=== PATIENT | female | born 1960 | race African-American/Black ===

== ENCOUNTER 2025-01-16 22:17 | Inpatient (IN) | payer OTHER ==
[2025-01-16 22:25] VITALS: BMI 30.7
[2025-01-16] MEDS: SODIUM CHLORIDE 0.9% 500 ML INFUS.BAG IV ONE (23:31)
[2025-01-16] MEDS: ACETAMINOPHEN 1000 MG/100 ML BAG IVPB ONE (23:32)
[2025-01-16 23:48] LABS: BASO % 0.7 % (0-2.0); EOS % 0.9 % (0-4.5); HEMATOCRIT 37.6 % (32.4-45.2); HEMOGLOBIN 12.8 GM/dL (10.7-15.3); LYMPH % 38.5 % (8-40); MCH 32.6 pg (25.7-33.7); MCHC 33.9 g/dl (32.0-36.0); MEAN PLT VOLUME 8.8 fl (7.5-11.1); MONO % 8.3 % (3.8-10.2); NEUT % 51.6 % (42.8-82.8); PLATELET COUNT 168 10^3/uL (134-434); RBC 3.92 M/mm3 (3.60-5.2); RDW 14.2 % (11.6-15.6); WHITE BLOOD COUNT 6.4 K/mm3 (4.0-10.0)
[2025-01-16 23:56] LABS: INR 0.94 (0.83-1.09); PROTHROMBIN TIME (PATIENT) 10.3 SEC (9.7-13.0)
[2025-01-16 23:58] LABS: ACTIVATED PTT 31.3 SECONDS (25.2-36.5)
[2025-01-17] MEDS ORDERED: PANTOPRAZOLE 20 MG TABLET PO ONE (00:04)
[2025-01-17] MEDS ORDERED: LIDOCAINE 4% PATCH TP ONE (00:04)
[2025-01-17] MEDS: LIDOCAINE 4% PATCH TP ONE (00:12)
[2025-01-17] MEDS: PANTOPRAZOLE 20 MG TABLET PO ONE (00:12)
[2025-01-17 00:25] LABS: POTASSIUM 3.7 mmol/L (3.5-5.1)
[2025-01-17 00:27] LABS: CALCIUM 13.1 mg/dL (8.5-10.1)
[2025-01-17 00:28] LABS: ALBUMIN 3.7 g/dl (3.4-5.0); MAGNESIUM 1.9 mg/dL (1.8-2.4)
[2025-01-17 00:30] LABS: CREATININE 1.2 mg/dL (0.55-1.3)
[2025-01-17 00:31] LABS: PHOSPHOROUS 2.7 mg/dL (2.5-4.9)
[2025-01-17 00:32] LABS: BILIRUBIN,TOTAL 0.3 mg/dL (0.2-1); TOT PROT 7.3 g/dl (6.4-8.2)
[2025-01-17 02:31] LABS: EPI CELLS 29 /uL (0-25.1); HYALINE CASTS 0 /uL (0-3.1); PH,URINE 6.5 (5.0-8.0); URINE APPEARANCE CLEAR; URINE BACTERIA 142 /uL (0-1359); URINE BILIRUBIN NEGATIVE (NEGATIVE); URINE COLOR YELLOW; URINE GLUCOSE (UA) NEGATIVE (NEGATIVE); URINE KETONE NEGATIVE (NEGATIVE); URINE LEUK ESTERASE 1+ (NEGATIVE); URINE NITRITE NEGATIVE (NEGATIVE); URINE PROTEIN NEGATIVE (NEGATIVE); URINE RBC 6 /uL (0-23.9); URINE UROBILINOGEN 0.2 mg/dL (0.2-1.0); URINE WBC 60 /uL (0-25.8)
[2025-01-17 04:14] LABS: METHADONE, UR NEGATIVE (NEGATIVE); URINE BARBITURATES NEGATIVE (NEGATIVE); URINE BENZODIAZEPINES NEGATIVE (NEGATIVE)
[2025-01-17 04:15] LABS: OPIATES, URI NEGATIVE (NEGATIVE); PHENCYCLIDINE,URINE NEGATIVE (NEGATIVE)
[2025-01-17] MEDS: SODIUM CHLORIDE 1,000 ML IV STA (04:27)
[2025-01-17] MEDS: ZOLEDRONIC ACID 4 MG in SODIUM CHLORIDE 100 ML IVPB ONE (04:27)
[2025-01-17 04:28] LABS: COCAINE, UR NEGATIVE (NEGATIVE); URINE AMPHETAMINES NEGATIVE (NEGATIVE)
[2025-01-17 06:34] LABS: BASO % 0.7 % (0-2.0); EOS % 1.1 % (0-4.5); HEMATOCRIT 37.8 % (32.4-45.2); HEMOGLOBIN 12.6 GM/dL (10.7-15.3); LYMPH % 39.5 % (8-40); MCH 32.2 pg (25.7-33.7); MCHC 33.3 g/dl (32.0-36.0); MEAN CELL VOLUME 96.8 fl (80-96); MEAN PLT VOLUME 9.4 fl (7.5-11.1); MONO % 7.6 % (3.8-10.2); NEUT % 51.1 % (42.8-82.8); PLATELET COUNT 170 10^3/uL (134-434); RDW 14.5 % (11.6-15.6)
[2025-01-17] MEDS: FUROSEMIDE 40 MG/4 ML INJECTABLE VIAL IVPUSH ONE (06:36)
[2025-01-17] MEDS ORDERED: FUROSEMIDE 40 MG/4 ML INJECTABLE VIAL ONE (06:36)
[2025-01-17 06:49] LABS: CHLORIDE 108 mmol/L (98-107); SODIUM 135 mmol/L (136-145)
[2025-01-17 06:51] LABS: CALCIUM 11.2 mg/dL (8.5-10.1)
[2025-01-17 06:52] LABS: ALBUMIN 3.5 g/dl (3.4-5.0); BLOOD UREA NITROGEN 18.6 mg/dL (7-18); CO2 25 mmol/L (21-32); GLUCOSE,RANDOM 108 mg/dL (74-106); MAGNESIUM 1.9 mg/dL (1.8-2.4)
[2025-01-17 06:55] LABS: CREATININE 1.1 mg/dL (0.55-1.3); PHOSPHOROUS 2.8 mg/dL (2.5-4.9); SGOT/AST 87 U/L (15-37)
[2025-01-17 06:56] LABS: BILIRUBIN,TOTAL 0.3 mg/dL (0.2-1)
[2025-01-17 06:58] LABS: ALK PHOS 101 U/L (45-117)
[2025-01-17 07:03] LABS: ANION GAP 2 mmol/L (4-13); POTASSIUM > 10.0 mmol/L (3.5-5.1); SGPT/ALT 43 U/L (13-61)
[2025-01-17] MEDS: SODIUM CHLORIDE 1,000 ML IV SCH (07:26)
[2025-01-17] MEDS ORDERED: ENOXAPARIN NA (PORCINE) 40 MG/0.4 ML DISP.SYRIN SQ SCH (10:00)
[2025-01-17] MEDS ORDERED: MIDAZOLAM HCL 2 MG/2 ML SINGLE DOSE VIAL ONE (10:31)
[2025-01-17 11:21] VITALS: RESP 18
[2025-01-17] MEDS: LIDOCAINE PATCH REMOVAL MC ONE (13:11)
[2025-01-17] MEDS: MAG HYDROX/AL HYDROX/SIMETH 30 ML UNIT-DOSE CUP PO ONE (20:25)
[2025-01-17] MEDS: ACETAMINOPHEN 1000 MG/100 ML BAG IVPB PRN (20:33)
[2025-01-18] MEDS: ACETAMINOPHEN 1000 MG/100 ML BAG IVPB SCH (04:32)
[2025-01-18 08:58] LABS: HEMATOCRIT 38.3 % (32.4-45.2); HEMOGLOBIN 12.6 GM/dL (10.7-15.3); MCH 31.9 pg (25.7-33.7); MEAN CELL VOLUME 96.8 fl (80-96); MEAN PLT VOLUME 8.9 fl (7.5-11.1); PLATELET COUNT 150 10^3/uL (134-434); RBC 3.96 M/mm3 (3.60-5.2); RDW 13.9 % (11.6-15.6); WHITE BLOOD COUNT 4.3 K/mm3 (4.0-10.0)
[2025-01-18 09:45] LABS: POTASSIUM 3.3 mmol/L (3.5-5.1)
[2025-01-18 09:53] LABS: CALCIUM 10.4 mg/dL (8.5-10.1)
[2025-01-18 09:54] LABS: ALBUMIN 3.7 g/dl (3.4-5.0); BLOOD UREA NITROGEN 9.8 mg/dL (7-18)
[2025-01-18 09:57] LABS: CREATININE 0.9 mg/dL (0.55-1.3)
[2025-01-18 09:59] LABS: BILIRUBIN,TOTAL 0.8 mg/dL (0.2-1); TOT PROT 7.1 g/dl (6.4-8.2)
[2025-01-18] MEDS: POTASSIUM CHLORIDE ORAL LIQUID 20 MEQ/15 ML PO ONE (12:12)
[2025-01-18 13:25] LABS: HIV INTERPRETATION NEGATIVE (NEGATIVE)
[2025-01-18 13:28] LABS: HCV DIAGNOSTIC IN-HOUSE W/RFLX NON-REACTIVE (NONREACTIVE)
[2025-01-18] MEDS: MAG HYDROX/AL HYDROX/SIMETH 30 ML UNIT-DOSE CUP PO ONE (19:57)
[2025-01-18] MEDS: ENOXAPARIN NA (PORCINE) 80 MG/0.8 ML DISP.SYRIN SQ SCH (21:14)
[2025-01-19] MEDS: ACETAMINOPHEN 1000 MG/100 ML BAG IVPB PRN (02:58)
[2025-01-19] MEDS: POLYETHYLENE GLYCOL (HEALTHYLAX) 3350 17 GM PACKET PO SCH (10:34)
[2025-01-19 10:54] LABS: BASO % 0.5 % (0-2.0); EOS % 1.1 % (0-4.5); HEMATOCRIT 35.9 % (32.4-45.2); HEMOGLOBIN 12.4 GM/dL (10.7-15.3); LYMPH % 28.4 % (8-40); MCHC 34.5 g/dl (32.0-36.0); MEAN CELL VOLUME 95.8 fl (80-96); MONO % 11.2 % (3.8-10.2); NEUT % 58.8 % (42.8-82.8); PLATELET COUNT 140 10^3/uL (134-434); RBC 3.75 M/mm3 (3.60-5.2); RDW 13.7 % (11.6-15.6); WHITE BLOOD COUNT 5.2 K/mm3 (4.0-10.0)
[2025-01-19 11:09] LABS: POTASSIUM 3.8 mmol/L (3.5-5.1)
[2025-01-19 11:14] LABS: ALBUMIN 3.4 g/dl (3.4-5.0); BLOOD UREA NITROGEN 6.9 mg/dL (7-18); CALCIUM 9.6 mg/dL (8.5-10.1); MAGNESIUM 1.9 mg/dL (1.8-2.4)
[2025-01-19 11:17] LABS: CREATININE 0.9 mg/dL (0.55-1.3); PHOSPHOROUS 1.7 mg/dL (2.5-4.9)
[2025-01-19 11:19] LABS: BILIRUBIN,TOTAL 0.4 mg/dL (0.2-1); TOT PROT 7.1 g/dl (6.4-8.2)
[2025-01-19] MEDS: NAPH,MB-DB/K PH,MBDB POWDER PACKET PO ONE (13:46)
[2025-01-19] MEDS: FAMOTIDINE 20 MG TABLET PO SCH (17:00)
[2025-01-20 09:06] LABS: HEMATOCRIT 36.3 % (32.4-45.2); HEMOGLOBIN 12.2 GM/dL (10.7-15.3); MCH 32.6 pg (25.7-33.7); MCHC 33.7 g/dl (32.0-36.0); MEAN CELL VOLUME 96.8 fl (80-96); MEAN PLT VOLUME 9.1 fl (7.5-11.1); PLATELET COUNT 151 10^3/uL (134-434); RBC 3.74 M/mm3 (3.60-5.2); RDW 13.6 % (11.6-15.6); WHITE BLOOD COUNT 5.7 K/mm3 (4.0-10.0)
[2025-01-20 09:31] LABS: CALCIUM 9.7 mg/dL (8.5-10.1)
[2025-01-20 09:32] LABS: ALBUMIN 3.4 g/dl (3.4-5.0); BLOOD UREA NITROGEN 8.1 mg/dL (7-18); CREATININE 0.8 mg/dL (0.55-1.3); MAGNESIUM 2.1 mg/dL (1.8-2.4); PHOSPHOROUS 1.8 mg/dL (2.5-4.9)
[2025-01-20 09:35] LABS: BILIRUBIN,TOTAL 0.4 mg/dL (0.2-1); TOT PROT 7.1 g/dl (6.4-8.2)
[2025-01-20 10:20] LABS: BASO % 0.7 % (0-2.0); MONO % 11.9 % (3.8-10.2); NEUT % 56.4 % (42.8-82.8)
[2025-01-20] MEDS: NAPH,MB-DB/K PH,MBDB POWDER PACKET PO SCH (10:56)
[2025-01-20 13:12] VITALS: BP 144/86; PULSE 70; TEMP 98
[2025-01-21 18:08] LABS: FREE KAPPA,SERUM 21.3 mg/L (3.3-19.4)
[2025-01-21 20:07] LABS: IG A QN SERUM. 423 mg/dL (87-352)
== END 2025-01-20 16:26 | disposition home or self-care (01) | DRG 436 ==
LOC: JER 22:17 → JERBED 01-17 00:44 → J8W 01-17 08:33
PROVIDERS: ADMIT Internal Medicine; ATTEND Internal Medicine
PROC: 0FBG8ZX Excision of Pancreas, Via Natural or Artificial Opening Endoscopic, Diagnostic (ICD-10-PCS; principal; 2025-01-17 11:00)
DX: C25.0 Malignant neoplasm of head of pancreas (principal); I82.890 Acute embolism and thrombosis of other specified veins; I10 Essential (primary) hypertension; K21.9 Gastro-esophageal reflux disease without esophagitis; K44.9 Diaphragmatic hernia without obstruction or gangrene; K29.60 Other gastritis without bleeding; E21.0 Primary hyperparathyroidism; F43.10 Post-traumatic stress disorder, unspecified
CPT/HCPCS: 36415; 71260-TC; 74177-TC; 74183-TC; 80048; 80053; 80307; 81003; 82306; 82330; 82378; 82652; 82784; 82941; 82943; 83605; 83690; 83735; 83883; 83970; 84100; 84132; 84155; 84165; 84439; 84443; 84586; 85025; 85027; 85610; 85730; 86301; 86304; 86334; 86803; 86850; 86900; 86901; 87086; 87389; 88305-TC; 93005; 93010; 99285-25; J0131; J3489

== ENCOUNTER 2025-01-31 17:56 | Emergency (ER) | payer OTHER ==
[2025-01-31 18:05] VITALS: RESP 18; BMI 31.1
[2025-01-31] MEDS: SODIUM CHLORIDE 1,000 ML IV STA (21:06)
[2025-01-31 21:30] LABS: BASO % 0.7 % (0-2.0); EOS % 0.8 % (0-4.5); HEMATOCRIT 37.9 % (32.4-45.2); HEMOGLOBIN 12.5 GM/dL (10.7-15.3); LYMPH % 34.5 % (8-40); MCHC 32.9 g/dl (32.0-36.0); MEAN CELL VOLUME 97.3 fl (80-96); MEAN PLT VOLUME 8.8 fl (7.5-11.1); MONO % 6.5 % (3.8-10.2); NEUT % 57.5 % (42.8-82.8); PLATELET COUNT 245 10^3/uL (134-434); RDW 13.7 % (11.6-15.6); WHITE BLOOD COUNT 7.2 K/mm3 (4.0-10.0)
[2025-01-31 21:39] LABS: INR 1.15 (0.83-1.09); PROTHROMBIN TIME (PATIENT) 12.6 SEC (9.7-13.0)
[2025-01-31 21:59] LABS: POTASSIUM 4.3 mmol/L (3.5-5.1)
[2025-01-31 22:02] LABS: ALBUMIN 3.9 g/dl (3.4-5.0); BLOOD UREA NITROGEN 19.8 mg/dL (7-18)
[2025-01-31 22:04] LABS: CALCIUM 11.8 mg/dL (8.5-10.1)
[2025-01-31 22:06] LABS: BILIRUBIN,TOTAL 0.5 mg/dL (0.2-1)
[2025-01-31 22:07] LABS: TOT PROT 7.6 g/dl (6.4-8.2)
[2025-01-31 22:11] LABS: MAGNESIUM 2.1 mg/dL (1.8-2.4)
[2025-02-01 01:26] LABS: POTASSIUM 3.4 mmol/L (3.5-5.1)
[2025-02-01 01:29] LABS: CALCIUM 10.5 mg/dL (8.5-10.1)
[2025-02-01 01:30] LABS: ALBUMIN 3.4 g/dl (3.4-5.0); BLOOD UREA NITROGEN 16.2 mg/dL (7-18)
[2025-02-01 01:33] LABS: CREATININE 0.8 mg/dL (0.55-1.3)
[2025-02-01 01:34] LABS: BILIRUBIN,TOTAL 0.5 mg/dL (0.2-1); TOT PROT 6.6 g/dl (6.4-8.2)
[2025-02-01] MEDS: SODIUM CHLORIDE 1,000 ML IV STA (01:57)
[2025-02-01 02:03] VITALS: BP 143/86; PULSE 74; TEMP 97.5
[2025-02-01] MEDS ORDERED: ACETAMINOPHEN INJECTION 100 ML ONE (02:08)
[2025-02-01] MEDS: ACETAMINOPHEN 1000 MG/100 ML BAG IVPB ONE (02:15)
[2025-02-01] MEDS ORDERED: POTASSIUM CHLORIDE ORAL LIQUID 20 MEQ/15 ML ONE (03:27)
[2025-02-01] MEDS: POTASSIUM CHLORIDE ORAL LIQUID 20 MEQ/15 ML PO ONE (03:36)
[2025-02-01 04:52] LABS: POTASSIUM 3.5 mmol/L (3.5-5.1)
[2025-02-01 04:55] LABS: ALBUMIN 3.3 g/dl (3.4-5.0); BLOOD UREA NITROGEN 14.8 mg/dL (7-18)
[2025-02-01 04:57] LABS: CREATININE 0.8 mg/dL (0.55-1.3)
[2025-02-01 04:59] LABS: BILIRUBIN,TOTAL 0.5 mg/dL (0.2-1); TOT PROT 6.6 g/dl (6.4-8.2)
== END 2025-02-01 06:25 | disposition home or self-care (01) ==
LOC: JER 17:56
PROC: 3E0337Z Introduction of Electrolytic and Water Balance Substance into Peripheral Vein, Percutaneous Approach (ICD-10-PCS; 2025-01-31)
PROC: 3E033NZ Introduction of Analgesics, Hypnotics, Sedatives into Peripheral Vein, Percutaneous Approach (ICD-10-PCS; principal; 2025-02-01)
PROC: 3E0337Z Introduction of Electrolytic and Water Balance Substance into Peripheral Vein, Percutaneous Approach (ICD-10-PCS; 2025-02-01)
DX: E83.52 Hypercalcemia (principal); R22.0 Localized swelling, mass and lump, head; K86.9 Disease of pancreas, unspecified; R41.0 Disorientation, unspecified; R10.84 Generalized abdominal pain
CPT/HCPCS: 36415; 80053; 82330; 83735; 84100; 85025; 85610; 85730; 86850; 86900; 86901; 93005; 93010; 99284-25; J0131